=== PATIENT | female | born 1950 | race Caucasian/White ===

== ENCOUNTER 2018-07-28 17:16 | Emergency (ER) | payer MEDICARE, OTHER ==
[~2018-07-28] VITALS: Ht 167.6 cm; Wt 83.6 kg
[~2018-07-28 17:16] MED LIST: NO MEDS
[2018-07-28 17:49] LABS: BASOPHILS % (AUTO) 0.5 % (0.0-2.0); EOSINOPHILS % (AUTO) 0.6 % (1.0-6.0); HEMATOCRIT 41.4 % (36-46); HEMOGLOBIN 13.9 g/dL (12.0-16.0); LYMPHOCYTES # (AUTO) 1.1 K/uL (1.0-4.8); LYMPHOCYTES % (AUTO) 25.5 % (22.0-44.0); MEAN CORPUSCULAR HEMOGLOBIN 32.2 pg (26.0-34.0); MEAN CORPUSCULAR HGB CONC 33.6 G/dL (31.0-37.0); MEAN CORPUSCULAR VOLUME 96 fL (80-100); MONOCYTES # (AUTO) 0.4 K/uL (0.1-1.0); NEUTROPHILS # (AUTO) 2.6 K/uL (1.8-7.7); NEUTROPHILS % (AUTO) 63.4 % (40.0-70.0); PLATELET COUNT (AUTO) 159 K/uL (150-450); RED BLOOD CELL COUNT(AUTO) 4.33 MIL/uL (4.00-5.20)
[2018-07-28 18:01] LABS: PROTHROMBIN TIME 10.7 SEC (9.4-11.6)
[2018-07-28] MEDS ORDERED: GABA-531 PO (18:26)
[2018-07-28] MEDS ORDERED: FLUT16H NASAL (18:26)
[2018-07-28] MEDS ORDERED: ADV250 IH (18:26)
[2018-07-28] MEDS ORDERED: SIMV-260 PO (18:26)
[2018-07-28 18:35] LABS: B-TYPE NATRIURETIC PEPTIDE < 5 pg/mL (0-100)
[2018-07-28 18:41] LABS: ANION GAP 8 mmol/L (8-16); CALCIUM, TOTAL 8.4 mg/dL (8.8-10.5); CARBON DIOXIDE 27 mmol/L (22-29); CHLORIDE 103 mmol/L (98-107); CREATININE 0.69 mg/dL (0.60-1.30); GLOMERULAR FILTR. RATE CALC > 60 mL/min (>60); GLUCOSE,RANDOM 98 mg/dL (70-110); POTASSIUM 4.2 mmol/L (3.5-5.1); SODIUM SERUM 138 mmol/L (136-145); UREA NITROGEN, BLOOD 8 mg/dL (7-18)
[2018-07-28 18:46] LABS: ALANINE AMINOTRANSFERASE 38 U/L (12-78); ALBUMIN 3.5 g/dL (3.4-5.0); ALKALINE PHOSPHATASE 70 U/L (46-116); ASPARTATE AMINOTRANSFERASE 26 U/L (15-37); BILIRUBIN,TOTAL 0.4 mg/dL (0.1-1.0); TOTAL PROTEIN, SERUM 6.8 g/dL (6.4-8.2)
[2018-07-28] MEDS ORDERED: IOVERSOL 320 MG/ML 100 ML VIAL ONE (20:40)
[2018-07-28] MEDS ORDERED: SODIUM CHLORIDE 0.9% 100 ML ONE (20:40)
[2018-07-28] MEDS ORDERED: ALBUTEROL SULFATE 2.5 MG/0.5 ML NEB SOLUTION NEB ONE (20:45)
[2018-07-28] MEDS ORDERED: IPRATROPIUM BROMIDE 0.5 MG/2.5 ML NEB SOLUTION NEB ONE (20:45)
[2018-07-28] MEDS ORDERED: LEVOFLOXACIN 250 MG TABLET PO ONE (22:45)
[2018-07-28] MEDS ORDERED: ACETAMINOPHEN 500 MG TABLET PO ONE (23:00)
[2018-07-28 23:23] VITALS: BP 131/79
== END 2018-07-28 23:47 | disposition home or self-care (01) ==
LOC: EMS 17:16
DX: J18.0 Bronchopneumonia, unspecified organism (principal); J44.9 Chronic obstructive pulmonary disease, unspecified; Z88.8 Allergy status to other drugs, medicaments and biological substances; Z79.899 Other long term (current) drug therapy
CPT/HCPCS: 36415; 71046; 71275; 80053; 83880; 84484; 85025; 85610; 85730; 87040; 93005; 94640; 99285; J7050; Q9967

== ENCOUNTER 2018-07-29 07:33 | Inpatient (IN) | payer MEDICARE, OTHER ==
[~2018-07-29] VITALS: Ht 160 cm; Wt 64.2 kg
[~2018-07-29 07:33] MED LIST changes: +ADV250 IH; +FLUT16H NASAL; +GABA-531 PO; +SIMV-260 PO
[2018-07-29] MEDS ORDERED: CefTRIAXone 1 GM/DEXTROSE 50 ML IV ONE (08:00)
[2018-07-29] MEDS ORDERED: AZITHROMYCIN 500 MG/NS 250 ML IV ONE (08:00)
[2018-07-29] MEDS ORDERED: ONDANSETRON HCL 4 MG/2 ML VIAL IVP PRN ×2 (08:15→10:15)
[2018-07-29] MEDS ORDERED: ACETAMINOPHEN 325 MG TABLET PO PRN (08:15)
[2018-07-29 08:39] LABS: BASOPHILS % (AUTO) 0.6 % (0.0-2.0); EOSINOPHILS % (AUTO) 0.6 % (1.0-6.0); HEMATOCRIT 41.7 % (36-46); HEMOGLOBIN 14.2 g/dL (12.0-16.0); LYMPHOCYTES # (AUTO) 0.9 K/uL (1.0-4.8); LYMPHOCYTES % (AUTO) 30.2 % (22.0-44.0); MEAN CORPUSCULAR HEMOGLOBIN 32.3 pg (26.0-34.0); MEAN CORPUSCULAR HGB CONC 34.1 G/dL (31.0-37.0); MEAN CORPUSCULAR VOLUME 95 fL (80-100); MONOCYTES # (AUTO) 0.3 K/uL (0.1-1.0); MONOCYTES % (AUTO) 10.7 % (2.0-9.0); NEUTROPHILS # (AUTO) 1.8 K/uL (1.8-7.7); NEUTROPHILS % (AUTO) 57.9 % (40.0-70.0); PLATELET COUNT (AUTO) 156 K/uL (150-450); RED BLOOD CELL COUNT(AUTO) 4.39 MIL/uL (4.00-5.20); RED CELL DISTRIBUTION WIDTH 13.8 % (11.5-14.5)
[2018-07-29 08:47] LABS: ANION GAP 4 mmol/L (8-16); CALCIUM, TOTAL 8.6 mg/dL (8.8-10.5); CARBON DIOXIDE 32 mmol/L (22-29); CHLORIDE 102 mmol/L (98-107); CREATININE 0.76 mg/dL (0.60-1.30); GLOMERULAR FILTR. RATE CALC > 60 mL/min (>60); GLUCOSE,RANDOM 96 mg/dL (70-110); POTASSIUM 3.8 mmol/L (3.5-5.1); SODIUM SERUM 138 mmol/L (136-145); UREA NITROGEN, BLOOD 8 mg/dL (7-18)
[2018-07-29 09:53] VITALS: BP 124/58
[2018-07-29] MEDS ORDERED: MAGNESIUM HYDROXIDE SUSPENSION 30 ML UDCUP PO PRN (10:15)
[2018-07-29] MEDS ORDERED: MORPHINE SULFATE 2 MG/ML SYRINGE IVP PRN (10:15)
[2018-07-29] MEDS ORDERED: ZOLPIDEM TARTRATE 5 MG TABLET PO PRN (10:15)
[2018-07-29] MEDS ORDERED: BISACODYL 10 MG RECTAL RECTAL SUPPOSITORY PR PRN (10:15)
[2018-07-29] MEDS ORDERED: *CLINICAL-LEVOFLOXACIN IVPB DOSING CLINICAL ONE (10:15)
[2018-07-29] MEDS ORDERED: LEVOFLOXACIN 750 MG/D5% WATER 150 ML IV SCH (11:00)
[2018-07-29] MEDS: DOXYCYCLINE HYCLATE 100 MG CAPSULE PO SCH ×2 (12:18→20:42)
[2018-07-29] MEDS: FLUTICASONE/VILANTEROL 200-25 MCG/INH INHALER [14] IH SCH (12:18)
[2018-07-29] MEDS ORDERED: SODIUM CHLORIDE 0.9% 500 ML IV ONE (12:22)
[2018-07-29 12:33] VITALS: BP 123/61
[2018-07-29 15:20] VITALS: BP 107/62
[2018-07-29] MEDS: GABAPENTIN 300 MG CAPSULE PO SCH ×2 (17:58→20:42)
[2018-07-29] MEDS: HEPARIN SODIUM,PORCINE 5,000 UNITS/ML VIAL SQ SCH (17:58)
[2018-07-29 19:31] VITALS: BP 120/65
[2018-07-29] MEDS: DOCUSATE SODIUM 100 MG CAPSULE PO SCH (20:42)
[2018-07-30] VITALS (7 sets, daily range): BP systolic 108–133; BP diastolic 50–75
[2018-07-30] MEDS: HEPARIN SODIUM,PORCINE 5,000 UNITS/ML VIAL SQ SCH ×3 (00:13→16:00)
[2018-07-30] MEDS: FLUTICASONE PROPIONATE 50 MCG/SPRAY 16 GM NASAL SPRAY NASAL SCH (08:22)
[2018-07-30] MEDS: FLUTICASONE/VILANTEROL 200-25 MCG/INH INHALER [14] IH SCH (08:22)
[2018-07-30] MEDS: DOXYCYCLINE HYCLATE 100 MG CAPSULE PO SCH ×2 (08:22→20:40)
[2018-07-30] MEDS: PANTOPRAZOLE SODIUM 40 MG DR TABLET PO SCH (08:23)
[2018-07-30] MEDS: GABAPENTIN 300 MG CAPSULE PO SCH ×3 (08:23→20:40)
[2018-07-30] MEDS: DOCUSATE SODIUM 100 MG CAPSULE PO SCH ×2 (08:23→20:40)
[2018-07-30] MEDS: CefTRIAXone 1 GM/DEXTROSE 50 ML IV SCH (08:25)
[2018-07-30] MEDS ORDERED: SODIUM CHLORIDE 0.9% 500 ML IV ONE (17:09)
[2018-07-30] MEDS: ACETAMINOPHEN 325 MG TABLET PO PRN (20:39)
[2018-07-31] MEDS: HEPARIN SODIUM,PORCINE 5,000 UNITS/ML VIAL SQ SCH ×3 (00:51→16:42)
[2018-07-31 04:48] VITALS: BP 113/63
[2018-07-31 07:20] VITALS: BP 113/77
[2018-07-31] MEDS: CefTRIAXone 1 GM/DEXTROSE 50 ML IV SCH (08:37)
[2018-07-31] MEDS: DOCUSATE SODIUM 100 MG CAPSULE PO SCH ×2 (08:37→20:28)
[2018-07-31] MEDS: FLUTICASONE PROPIONATE 50 MCG/SPRAY 16 GM NASAL SPRAY NASAL SCH (08:37)
[2018-07-31] MEDS: FLUTICASONE/VILANTEROL 200-25 MCG/INH INHALER [14] IH SCH (08:37)
[2018-07-31] MEDS: DOXYCYCLINE HYCLATE 100 MG CAPSULE PO SCH ×2 (08:38→20:28)
[2018-07-31] MEDS: GABAPENTIN 300 MG CAPSULE PO SCH ×3 (08:38→20:28)
[2018-07-31] MEDS: PANTOPRAZOLE SODIUM 40 MG DR TABLET PO SCH (08:38)
[2018-07-31 11:10] VITALS: BP 121/44
[2018-07-31 16:29] VITALS: BP 117/75
[2018-07-31 20:31] VITALS: BP 123/69
[2018-07-31 23:16] VITALS: BP 117/58
[2018-08-01] MEDS: HEPARIN SODIUM,PORCINE 5,000 UNITS/ML VIAL SQ SCH ×3 (01:04→15:15)
[2018-08-01 03:46] VITALS: BP 109/64
[2018-08-01] MEDS: ACETAMINOPHEN 325 MG TABLET PO PRN (04:04)
[2018-08-01 07:36] VITALS: BP 113/60
[2018-08-01] MEDS: DOCUSATE SODIUM 100 MG CAPSULE PO SCH ×2 (08:16→20:46)
[2018-08-01] MEDS: FLUTICASONE/VILANTEROL 200-25 MCG/INH INHALER [14] IH SCH (08:16)
[2018-08-01] MEDS: GABAPENTIN 300 MG CAPSULE PO SCH ×3 (08:16→20:46)
[2018-08-01] MEDS: DOXYCYCLINE HYCLATE 100 MG CAPSULE PO SCH ×2 (08:16→20:46)
[2018-08-01] MEDS: FLUTICASONE PROPIONATE 50 MCG/SPRAY 16 GM NASAL SPRAY NASAL SCH (08:16)
[2018-08-01] MEDS: PANTOPRAZOLE SODIUM 40 MG DR TABLET PO SCH (08:16)
[2018-08-01] MEDS: CefTRIAXone 1 GM/DEXTROSE 50 ML IV SCH (08:26)
[2018-08-01 11:41] VITALS: BP 93/53
[2018-08-01 15:34] VITALS: BP 115/64
[2018-08-01 20:05] VITALS: BP 127/70
[2018-08-02 00:08] VITALS: BP 115/71
[2018-08-02] MEDS: HEPARIN SODIUM,PORCINE 5,000 UNITS/ML VIAL SQ SCH ×4 (00:57→23:27)
[2018-08-02 04:56] VITALS: BP 119/66
[2018-08-02 07:41] VITALS: BP 117/67
[2018-08-02] MEDS: FLUTICASONE/VILANTEROL 200-25 MCG/INH INHALER [14] IH SCH (07:56)
[2018-08-02] MEDS: FLUTICASONE PROPIONATE 50 MCG/SPRAY 16 GM NASAL SPRAY NASAL SCH (07:56)
[2018-08-02] MEDS: PANTOPRAZOLE SODIUM 40 MG DR TABLET PO SCH (07:56)
[2018-08-02] MEDS: DOCUSATE SODIUM 100 MG CAPSULE PO SCH ×2 (07:56→20:24)
[2018-08-02] MEDS: CefTRIAXone 1 GM/DEXTROSE 50 ML IV SCH (07:56)
[2018-08-02] MEDS: GABAPENTIN 300 MG CAPSULE PO SCH ×3 (07:57→20:24)
[2018-08-02] MEDS: DOXYCYCLINE HYCLATE 100 MG CAPSULE PO SCH ×2 (07:57→20:24)
[2018-08-02 09:23] LABS: LEGIONELLA PNEUMO AG URINE Negative (Negative); ORGANISM ID Not indicated.; S PNEUMO SOURCE Urine; STREP PNEUMONIAE AG URINE Negative (Negative); STREP.PNEUMO BODY FLUID CULT. Not Indicated
[2018-08-02 11:33] VITALS: BP 106/62
[2018-08-02 15:27] VITALS: BP 130/74
[2018-08-02 20:05] VITALS: BP 104/68
[2018-08-02 22:15] LABS: QUANTIFERON+, Nil Value 0.11 IU/mL; QUANTIFERON+,Mitogen Value >10.00 IU/mL; QUANTIFERON+,TB1 Antigen Value 0.74 IU/mL; QUANTIFERON+,TB2 Antigen Value 1.37 IU/mL; QUANTIFERON, TB GOLD PLUS Positive (Negative)
[2018-08-03] VITALS (7 sets, daily range): BP systolic 100–122; BP diastolic 55–74
[2018-08-03] MEDS: HEPARIN SODIUM,PORCINE 5,000 UNITS/ML VIAL SQ SCH ×2 (08:47→16:57)
[2018-08-03] MEDS: DOCUSATE SODIUM 100 MG CAPSULE PO SCH ×2 (08:47→20:18)
[2018-08-03] MEDS: PANTOPRAZOLE SODIUM 40 MG DR TABLET PO SCH (08:47)
[2018-08-03] MEDS: GABAPENTIN 300 MG CAPSULE PO SCH ×3 (08:48→20:18)
[2018-08-03] MEDS: FLUTICASONE PROPIONATE 50 MCG/SPRAY 16 GM NASAL SPRAY NASAL SCH (08:48)
[2018-08-03] MEDS: FLUTICASONE/VILANTEROL 200-25 MCG/INH INHALER [14] IH SCH (08:48)
[2018-08-03] MEDS: DOXYCYCLINE HYCLATE 100 MG CAPSULE PO SCH ×2 (08:49→20:18)
[2018-08-03] MEDS: CefTRIAXone 1 GM/DEXTROSE 50 ML IV SCH (08:52)
[2018-08-03] MEDS ORDERED: SODIUM CHLORIDE 0.9% 250 ML IV ONE (09:07)
[2018-08-04] MEDS: HEPARIN SODIUM,PORCINE 5,000 UNITS/ML VIAL SQ SCH ×3 (00:10→16:13)
[2018-08-04 04:45] VITALS: BP 108/42
[2018-08-04 07:06] LABS: MTB NUCL.ACID AMPLIF W/O AFBCS Negative (Negative)
[2018-08-04 08:08] VITALS: BP 126/74
[2018-08-04] MEDS: FLUTICASONE/VILANTEROL 200-25 MCG/INH INHALER [14] IH SCH (08:51)
[2018-08-04] MEDS: FLUTICASONE PROPIONATE 50 MCG/SPRAY 16 GM NASAL SPRAY NASAL SCH (08:51)
[2018-08-04] MEDS: GABAPENTIN 300 MG CAPSULE PO SCH ×3 (08:52→20:38)
[2018-08-04] MEDS: DOXYCYCLINE HYCLATE 100 MG CAPSULE PO SCH ×2 (08:52→20:38)
[2018-08-04] MEDS: DOCUSATE SODIUM 100 MG CAPSULE PO SCH ×2 (08:52→20:38)
[2018-08-04] MEDS: PANTOPRAZOLE SODIUM 40 MG DR TABLET PO SCH (08:52)
[2018-08-04] MEDS ORDERED: SODIUM CHLORIDE 0.9% 250 ML IV ONE (09:52)
[2018-08-04] MEDS: CefTRIAXone 1 GM/DEXTROSE 50 ML IV SCH (10:02)
[2018-08-04 12:03] VITALS: BP 124/81
[2018-08-04 16:08] VITALS: BP 118/72
[2018-08-04] MEDS ORDERED: SODIUM CHLORIDE 3% 15 ML NEB SOLUTION NEB ONE (19:57)
[2018-08-04 20:38] VITALS: BP 125/85
[2018-08-05] MEDS: HEPARIN SODIUM,PORCINE 5,000 UNITS/ML VIAL SQ SCH ×3 (00:30→16:06)
[2018-08-05 00:33] VITALS: BP 103/55
[2018-08-05 05:08] VITALS: BP 105/70
[2018-08-05 07:50] VITALS: BP 119/66
[2018-08-05] MEDS: DOCUSATE SODIUM 100 MG CAPSULE PO SCH ×2 (09:00→21:04)
[2018-08-05] MEDS: CefTRIAXone 1 GM/DEXTROSE 50 ML IV SCH (09:29)
[2018-08-05] MEDS: PANTOPRAZOLE SODIUM 40 MG DR TABLET PO SCH (09:29)
[2018-08-05] MEDS: GABAPENTIN 300 MG CAPSULE PO SCH ×3 (09:29→21:04)
[2018-08-05] MEDS: FLUTICASONE PROPIONATE 50 MCG/SPRAY 16 GM NASAL SPRAY NASAL SCH (09:30)
[2018-08-05] MEDS: DOXYCYCLINE HYCLATE 100 MG CAPSULE PO SCH ×2 (09:30→21:04)
[2018-08-05] MEDS: FLUTICASONE/VILANTEROL 200-25 MCG/INH INHALER [14] IH SCH (09:30)
[2018-08-05 12:10] VITALS: BP 121/64
[2018-08-05 17:50] VITALS: BP 119/67
[2018-08-05 20:46] VITALS: BP 117/71
[2018-08-06] VITALS (7 sets, daily range): BP systolic 109–140; BP diastolic 62–83
[2018-08-06] MEDS: HEPARIN SODIUM,PORCINE 5,000 UNITS/ML VIAL SQ SCH ×4 (00:27→23:40)
[2018-08-06 07:06] LABS: HIV 1-2 SCREEN 4TH GEN W/RFLX Non Reactive (Non Reactive)
[2018-08-06] MEDS: CefTRIAXone 1 GM/DEXTROSE 50 ML IV SCH (08:38)
[2018-08-06] MEDS: GABAPENTIN 300 MG CAPSULE PO SCH ×3 (08:40→20:12)
[2018-08-06] MEDS: FLUTICASONE/VILANTEROL 200-25 MCG/INH INHALER [14] IH SCH (08:40)
[2018-08-06] MEDS: DOXYCYCLINE HYCLATE 100 MG CAPSULE PO SCH ×2 (08:40→20:12)
[2018-08-06] MEDS: PANTOPRAZOLE SODIUM 40 MG DR TABLET PO SCH (08:40)
[2018-08-06] MEDS: DOCUSATE SODIUM 100 MG CAPSULE PO SCH ×3 (08:40→20:13)
[2018-08-06] MEDS: FLUTICASONE PROPIONATE 50 MCG/SPRAY 16 GM NASAL SPRAY NASAL SCH (08:40)
[2018-08-07 04:50] VITALS: BP 98/61
[2018-08-07] MEDS: HEPARIN SODIUM,PORCINE 5,000 UNITS/ML VIAL SQ SCH ×2 (08:00→16:00)
[2018-08-07 08:07] VITALS: BP 123/90
[2018-08-07] MEDS: CefTRIAXone 1 GM/DEXTROSE 50 ML IV SCH (08:17)
[2018-08-07] MEDS: DOXYCYCLINE HYCLATE 100 MG CAPSULE PO SCH ×2 (08:18→20:31)
[2018-08-07] MEDS: GABAPENTIN 300 MG CAPSULE PO SCH ×3 (08:18→20:31)
[2018-08-07] MEDS: FLUTICASONE/VILANTEROL 200-25 MCG/INH INHALER [14] IH SCH (08:18)
[2018-08-07] MEDS: PANTOPRAZOLE SODIUM 40 MG DR TABLET PO SCH (08:18)
[2018-08-07] MEDS: DOCUSATE SODIUM 100 MG CAPSULE PO SCH ×2 (08:18→20:31)
[2018-08-07] MEDS: FLUTICASONE PROPIONATE 50 MCG/SPRAY 16 GM NASAL SPRAY NASAL SCH (08:18)
[2018-08-07 11:05] VITALS: BP 109/50
[2018-08-07 16:32] VITALS: BP 128/61
[2018-08-07 20:10] VITALS: BP 101/65
[2018-08-07 23:39] VITALS: BP 100/61
[2018-08-08 04:43] VITALS: BP 102/69
[2018-08-08] MEDS: FLUTICASONE PROPIONATE 50 MCG/SPRAY 16 GM NASAL SPRAY NASAL SCH (07:48)
[2018-08-08] MEDS: FLUTICASONE/VILANTEROL 200-25 MCG/INH INHALER [14] IH SCH (07:48)
[2018-08-08] MEDS: CefTRIAXone 1 GM/DEXTROSE 50 ML IV SCH (07:48)
[2018-08-08] MEDS: HEPARIN SODIUM,PORCINE 5,000 UNITS/ML VIAL SQ SCH ×5 (07:48→23:06)
[2018-08-08] MEDS: DOXYCYCLINE HYCLATE 100 MG CAPSULE PO SCH (07:48)
[2018-08-08] MEDS: PANTOPRAZOLE SODIUM 40 MG DR TABLET PO SCH (07:48)
[2018-08-08] MEDS: DOCUSATE SODIUM 100 MG CAPSULE PO SCH ×2 (07:48→20:06)
[2018-08-08] MEDS: GABAPENTIN 300 MG CAPSULE PO SCH ×3 (07:50→20:06)
[2018-08-08 08:05] VITALS: BP 121/75
[2018-08-08 11:20] VITALS: BP 103/68
[2018-08-08 15:53] VITALS: BP 124/65
[2018-08-08 20:34] VITALS: BP 122/70
[2018-08-08 23:59] VITALS: BP 118/70
[2018-08-09 05:39] VITALS: BP 115/67
[2018-08-09] MEDS: GABAPENTIN 300 MG CAPSULE PO SCH ×3 (07:51→20:49)
[2018-08-09] MEDS: DOCUSATE SODIUM 100 MG CAPSULE PO SCH ×2 (07:51→20:49)
[2018-08-09] MEDS: FLUTICASONE/VILANTEROL 200-25 MCG/INH INHALER [14] IH SCH (07:51)
[2018-08-09] MEDS: PANTOPRAZOLE SODIUM 40 MG DR TABLET PO SCH (07:51)
[2018-08-09] MEDS: FLUTICASONE PROPIONATE 50 MCG/SPRAY 16 GM NASAL SPRAY NASAL SCH (07:51)
[2018-08-09] MEDS: HEPARIN SODIUM,PORCINE 5,000 UNITS/ML VIAL SQ SCH ×3 (08:00→23:31)
[2018-08-09 08:07] VITALS: BP 112/67
[2018-08-09 12:09] VITALS: BP 107/65
[2018-08-09 16:07] VITALS: BP 115/70
[2018-08-09 20:09] VITALS: BP 110/63
[2018-08-10 04:51] VITALS: BP 106/51
[2018-08-10] MEDS: ACETAMINOPHEN 325 MG TABLET PO PRN ×2 (05:07→22:28)
[2018-08-10] MEDS: HEPARIN SODIUM,PORCINE 5,000 UNITS/ML VIAL SQ SCH ×2 (08:00→15:29)
[2018-08-10] MEDS: FLUTICASONE/VILANTEROL 200-25 MCG/INH INHALER [14] IH SCH (08:39)
[2018-08-10] MEDS: FLUTICASONE PROPIONATE 50 MCG/SPRAY 16 GM NASAL SPRAY NASAL SCH (08:39)
[2018-08-10] MEDS: PANTOPRAZOLE SODIUM 40 MG DR TABLET PO SCH (08:39)
[2018-08-10] MEDS: GABAPENTIN 300 MG CAPSULE PO SCH ×3 (08:39→22:28)
[2018-08-10] MEDS: DOCUSATE SODIUM 100 MG CAPSULE PO SCH ×2 (08:40→22:28)
[2018-08-10 08:58] VITALS: BP 122/61
[2018-08-10 12:05] LABS: BASOPHILS % (AUTO) 0.4 % (0.0-2.0); HEMATOCRIT 40.3 % (36-46); HEMOGLOBIN 13.7 g/dL (12.0-16.0); LYMPHOCYTES # (AUTO) 1.5 K/uL (1.0-4.8); LYMPHOCYTES % (AUTO) 29.3 % (22.0-44.0); MEAN CORPUSCULAR HEMOGLOBIN 33.1 pg (26.0-34.0); MEAN CORPUSCULAR HGB CONC 33.9 G/dL (31.0-37.0); MEAN CORPUSCULAR VOLUME 98 fL (80-100); MONOCYTES # (AUTO) 0.4 K/uL (0.1-1.0); MONOCYTES % (AUTO) 6.9 % (2.0-9.0); NEUTROPHILS # (AUTO) 3.1 K/uL (1.8-7.7); NEUTROPHILS % (AUTO) 61.4 % (40.0-70.0); PLATELET COUNT (AUTO) 269 K/uL (150-450); RED BLOOD CELL COUNT(AUTO) 4.12 MIL/uL (4.00-5.20); RED CELL DISTRIBUTION WIDTH 14.3 % (11.5-14.5)
[2018-08-10 12:48] LABS: ALANINE AMINOTRANSFERASE 66 U/L (12-78); ALBUMIN 3.5 g/dL (3.4-5.0); ALKALINE PHOSPHATASE 76 U/L (46-116); ANION GAP 6 mmol/L (8-16); ASPARTATE AMINOTRANSFERASE 18 U/L (15-37); BILIRUBIN,TOTAL 0.3 mg/dL (0.1-1.0); CALCIUM, TOTAL 8.8 mg/dL (8.8-10.5); CARBON DIOXIDE 29 mmol/L (22-29); CHLORIDE 104 mmol/L (98-107); CREATININE 0.64 mg/dL (0.60-1.30); GLOMERULAR FILTR. RATE CALC > 60 mL/min (>60); GLUCOSE,RANDOM 102 mg/dL (70-110); POTASSIUM 4.3 mmol/L (3.5-5.1); SODIUM SERUM 139 mmol/L (136-145); TOTAL PROTEIN, SERUM 6.5 g/dL (6.4-8.2); UREA NITROGEN, BLOOD 14 mg/dL (7-18)
[2018-08-10 13:13] VITALS: BP 117/76
[2018-08-10 16:46] VITALS: BP 145/90
[2018-08-10 20:56] VITALS: BP 130/80
[2018-08-11 00:07] VITALS: BP 129/89
[2018-08-11] MEDS: HEPARIN SODIUM,PORCINE 5,000 UNITS/ML VIAL SQ SCH ×3 (00:26→16:00)
[2018-08-11 04:00] VITALS: BP 123/70
[2018-08-11] MEDS: HYDROCODONE/ACETAMINOPHEN 5-325 MG TABLET PO PRN (06:21)
[2018-08-11 07:25] VITALS: BP 94/60
[2018-08-11] MEDS: GABAPENTIN 300 MG CAPSULE PO SCH ×3 (08:25→21:00)
[2018-08-11] MEDS: FLUTICASONE PROPIONATE 50 MCG/SPRAY 16 GM NASAL SPRAY NASAL SCH (08:25)
[2018-08-11] MEDS: FLUTICASONE/VILANTEROL 200-25 MCG/INH INHALER [14] IH SCH (08:25)
[2018-08-11] MEDS: PANTOPRAZOLE SODIUM 40 MG DR TABLET PO SCH (08:25)
[2018-08-11] MEDS: DOCUSATE SODIUM 100 MG CAPSULE PO SCH ×2 (08:28→21:00)
[2018-08-11 11:32] VITALS: BP 115/57
[2018-08-11 15:31] VITALS: BP 112/55
[2018-08-11 20:05] VITALS: BP 123/61
[2018-08-12] VITALS (7 sets, daily range): BP systolic 98–120; BP diastolic 52–78
[2018-08-12] MEDS: FLUTICASONE PROPIONATE 50 MCG/SPRAY 16 GM NASAL SPRAY NASAL SCH (09:47)
[2018-08-12] MEDS: HEPARIN SODIUM,PORCINE 5,000 UNITS/ML VIAL SQ SCH ×4 (09:47→23:37)
[2018-08-12] MEDS: DOCUSATE SODIUM 100 MG CAPSULE PO SCH ×3 (09:47→20:13)
[2018-08-12] MEDS: FLUTICASONE/VILANTEROL 200-25 MCG/INH INHALER [14] IH SCH (09:47)
[2018-08-12] MEDS: GABAPENTIN 300 MG CAPSULE PO SCH ×3 (09:48→20:12)
[2018-08-12] MEDS: PANTOPRAZOLE SODIUM 40 MG DR TABLET PO SCH (09:48)
[2018-08-12] MEDS ORDERED: AZITHROMYCIN 250 MG TABLET PO ONE (15:15)
[2018-08-12] MEDS: ISONIAZID 300 MG TABLET PO SCH (16:39)
[2018-08-12] MEDS: RIFAMPIN 300 MG CAPSULE PO SCH (16:47)
[2018-08-12] MEDS: PYRAZINAMIDE 500 MG TABLET PO SCH (16:47)
[2018-08-12] MEDS: PYRIDOXINE HCL 50 MG TABLET PO SCH (16:47)
[2018-08-12] MEDS: ETHAMBUTOL HCL 400 MG TABLET PO SCH (16:48)
[2018-08-12 20:07] LABS: MTB NUCL.ACID AMPLIF W/O AFBCS Negative (Negative)
[2018-08-13 04:56] VITALS: BP 98/50
[2018-08-13 08:04] VITALS: BP 110/54
[2018-08-13] MEDS: FLUTICASONE PROPIONATE 50 MCG/SPRAY 16 GM NASAL SPRAY NASAL SCH (08:36)
[2018-08-13] MEDS: FLUTICASONE/VILANTEROL 200-25 MCG/INH INHALER [14] IH SCH (08:36)
[2018-08-13] MEDS: PYRIDOXINE HCL 50 MG TABLET PO SCH (08:37)
[2018-08-13] MEDS: ISONIAZID 300 MG TABLET PO SCH (08:37)
[2018-08-13] MEDS: RIFAMPIN 300 MG CAPSULE PO SCH (08:37)
[2018-08-13] MEDS: PANTOPRAZOLE SODIUM 40 MG DR TABLET PO SCH (08:37)
[2018-08-13] MEDS: ETHAMBUTOL HCL 400 MG TABLET PO SCH (08:37)
[2018-08-13] MEDS: GABAPENTIN 300 MG CAPSULE PO SCH ×3 (08:37→19:47)
[2018-08-13] MEDS: DOCUSATE SODIUM 100 MG CAPSULE PO SCH ×2 (08:37→19:48)
[2018-08-13] MEDS: PYRAZINAMIDE 500 MG TABLET PO SCH (08:38)
[2018-08-13] MEDS: HEPARIN SODIUM,PORCINE 5,000 UNITS/ML VIAL SQ SCH ×3 (08:38→23:58)
[2018-08-13 12:18] VITALS: BP 105/54
[2018-08-13 16:07] VITALS: BP 120/68
[2018-08-13 19:52] VITALS: BP 130/68
[2018-08-14 00:13] VITALS: BP 122/69
[2018-08-14 04:40] VITALS: BP 118/53
[2018-08-14 08:04] VITALS: BP 127/72
[2018-08-14] MEDS: ETHAMBUTOL HCL 400 MG TABLET PO SCH (08:10)
[2018-08-14] MEDS: HEPARIN SODIUM,PORCINE 5,000 UNITS/ML VIAL SQ SCH ×3 (08:10→23:55)
[2018-08-14] MEDS: PANTOPRAZOLE SODIUM 40 MG DR TABLET PO SCH (08:10)
[2018-08-14] MEDS: PYRIDOXINE HCL 50 MG TABLET PO SCH (08:10)
[2018-08-14] MEDS: FLUTICASONE/VILANTEROL 200-25 MCG/INH INHALER [14] IH SCH (08:10)
[2018-08-14] MEDS: DOCUSATE SODIUM 100 MG CAPSULE PO SCH ×2 (08:10→21:28)
[2018-08-14] MEDS: RIFAMPIN 300 MG CAPSULE PO SCH (08:10)
[2018-08-14] MEDS: ISONIAZID 300 MG TABLET PO SCH (08:10)
[2018-08-14] MEDS: GABAPENTIN 300 MG CAPSULE PO SCH ×3 (08:10→21:28)
[2018-08-14] MEDS: PYRAZINAMIDE 500 MG TABLET PO SCH (08:10)
[2018-08-14] MEDS: FLUTICASONE PROPIONATE 50 MCG/SPRAY 16 GM NASAL SPRAY NASAL SCH (08:11)
[2018-08-14] MEDS: HYDROCODONE/ACETAMINOPHEN 5-325 MG TABLET PO PRN (08:12)
[2018-08-14 11:34] VITALS: BP 124/76
[2018-08-14] MEDS: ACETAMINOPHEN 325 MG TABLET PO PRN (15:49)
[2018-08-14 16:38] VITALS: BP 125/83
[2018-08-14 20:14] VITALS: BP 118/76
[2018-08-15] VITALS (7 sets, daily range): BP systolic 98–136; BP diastolic 57–75
[2018-08-15] MEDS: PYRAZINAMIDE 500 MG TABLET PO SCH (08:28)
[2018-08-15] MEDS: ETHAMBUTOL HCL 400 MG TABLET PO SCH (08:28)
[2018-08-15] MEDS: ACETAMINOPHEN 325 MG TABLET PO PRN (08:29)
[2018-08-15] MEDS: AZITHROMYCIN 250 MG TABLET PO SCH (08:29)
[2018-08-15] MEDS: PYRIDOXINE HCL 50 MG TABLET PO SCH (08:29)
[2018-08-15] MEDS: GABAPENTIN 300 MG CAPSULE PO SCH ×2 (08:29→16:04)
[2018-08-15] MEDS: FLUTICASONE PROPIONATE 50 MCG/SPRAY 16 GM NASAL SPRAY NASAL SCH (08:29)
[2018-08-15] MEDS: FLUTICASONE/VILANTEROL 200-25 MCG/INH INHALER [14] IH SCH (08:29)
[2018-08-15] MEDS: HEPARIN SODIUM,PORCINE 5,000 UNITS/ML VIAL SQ SCH ×2 (08:29→16:00)
[2018-08-15] MEDS: RIFAMPIN 300 MG CAPSULE PO SCH (08:29)
[2018-08-15] MEDS: PANTOPRAZOLE SODIUM 40 MG DR TABLET PO SCH (08:29)
[2018-08-15] MEDS: ISONIAZID 300 MG TABLET PO SCH (08:29)
[2018-08-15] MEDS: DOCUSATE SODIUM 100 MG CAPSULE PO SCH (08:34)
[2018-08-16 04:51] VITALS: BP 107/59
[2018-08-16 07:44] VITALS: BP 116/64
[2018-08-16] MEDS: PYRAZINAMIDE 500 MG TABLET PO SCH (08:25)
[2018-08-16] MEDS: PYRIDOXINE HCL 50 MG TABLET PO SCH (08:25)
[2018-08-16] MEDS: PANTOPRAZOLE SODIUM 40 MG DR TABLET PO SCH (08:25)
[2018-08-16] MEDS: RIFAMPIN 300 MG CAPSULE PO SCH (08:25)
[2018-08-16] MEDS: ETHAMBUTOL HCL 400 MG TABLET PO SCH (08:25)
[2018-08-16] MEDS: GABAPENTIN 300 MG CAPSULE PO SCH ×3 (08:25→20:13)
[2018-08-16] MEDS: DOCUSATE SODIUM 100 MG CAPSULE PO SCH ×2 (08:25→20:14)
[2018-08-16] MEDS: ISONIAZID 300 MG TABLET PO SCH (08:25)
[2018-08-16] MEDS: FLUTICASONE PROPIONATE 50 MCG/SPRAY 16 GM NASAL SPRAY NASAL SCH (08:26)
[2018-08-16] MEDS: HEPARIN SODIUM,PORCINE 5,000 UNITS/ML VIAL SQ SCH ×3 (08:26→23:23)
[2018-08-16] MEDS: FLUTICASONE/VILANTEROL 200-25 MCG/INH INHALER [14] IH SCH (08:26)
[2018-08-16 11:33] VITALS: BP 111/56
[2018-08-16] MEDS ORDERED: ETHAMBUTOL HCL 400 MG TABLET PO ONE (11:45)
[2018-08-16] MEDS ORDERED: PYRAZINAMIDE 500 MG TABLET PO ONE (11:45)
[2018-08-16 16:04] VITALS: BP 126/56
[2018-08-16 20:22] VITALS: BP 108/51
[2018-08-16 23:43] VITALS: BP 105/56
[2018-08-17 04:15] VITALS: BP 124/67
[2018-08-17 06:07] LABS: BASOPHILS % (AUTO) 0.7 % (0.0-2.0); HEMATOCRIT 37.3 % (36-46); HEMOGLOBIN 12.7 g/dL (12.0-16.0); LYMPHOCYTES # (AUTO) 1.6 K/uL (1.0-4.8); LYMPHOCYTES % (AUTO) 34.7 % (22.0-44.0); MEAN CORPUSCULAR HEMOGLOBIN 33.1 pg (26.0-34.0); MEAN CORPUSCULAR VOLUME 97 fL (80-100); MONOCYTES # (AUTO) 0.3 K/uL (0.1-1.0); MONOCYTES % (AUTO) 6.8 % (2.0-9.0); NEUTROPHILS # (AUTO) 2.5 K/uL (1.8-7.7); NEUTROPHILS % (AUTO) 53.8 % (40.0-70.0); PLATELET COUNT (AUTO) 204 K/uL (150-450); RED BLOOD CELL COUNT(AUTO) 3.84 MIL/uL (4.00-5.20); RED CELL DISTRIBUTION WIDTH 14.3 % (11.5-14.5)
[2018-08-17 06:48] LABS: ALANINE AMINOTRANSFERASE 40 U/L (12-78); ALBUMIN 3.3 g/dL (3.4-5.0); ALKALINE PHOSPHATASE 77 U/L (46-116); ANION GAP 9 mmol/L (8-16); ASPARTATE AMINOTRANSFERASE 22 U/L (15-37); BILIRUBIN,TOTAL 0.2 mg/dL (0.1-1.0); CARBON DIOXIDE 28 mmol/L (22-29); CHLORIDE 103 mmol/L (98-107); CREATININE 0.78 mg/dL (0.60-1.30); GLOMERULAR FILTR. RATE CALC > 60 mL/min (>60); GLUCOSE,RANDOM 94 mg/dL (70-110); POTASSIUM 4.1 mmol/L (3.5-5.1); SODIUM SERUM 140 mmol/L (136-145); TOTAL PROTEIN, SERUM 6.2 g/dL (6.4-8.2); UREA NITROGEN, BLOOD 15 mg/dL (7-18)
[2018-08-17 07:35] VITALS: BP 134/82
[2018-08-17] MEDS: FLUTICASONE PROPIONATE 50 MCG/SPRAY 16 GM NASAL SPRAY NASAL SCH (08:22)
[2018-08-17] MEDS: FLUTICASONE/VILANTEROL 200-25 MCG/INH INHALER [14] IH SCH (08:22)
[2018-08-17] MEDS: HEPARIN SODIUM,PORCINE 5,000 UNITS/ML VIAL SQ SCH ×2 (08:23→17:26)
[2018-08-17] MEDS: PANTOPRAZOLE SODIUM 40 MG DR TABLET PO SCH (08:23)
[2018-08-17] MEDS: ETHAMBUTOL HCL 400 MG TABLET PO SCH (08:23)
[2018-08-17] MEDS: GABAPENTIN 300 MG CAPSULE PO SCH ×3 (08:23→20:26)
[2018-08-17] MEDS: PYRIDOXINE HCL 50 MG TABLET PO SCH (08:24)
[2018-08-17] MEDS: RIFAMPIN 300 MG CAPSULE PO SCH (08:24)
[2018-08-17] MEDS: PYRAZINAMIDE 500 MG TABLET PO SCH (08:24)
[2018-08-17] MEDS: DOCUSATE SODIUM 100 MG CAPSULE PO SCH ×2 (08:24→20:26)
[2018-08-17] MEDS: ISONIAZID 300 MG TABLET PO SCH (08:24)
[2018-08-17] MEDS: AZITHROMYCIN 250 MG TABLET PO SCH (08:24)
[2018-08-17 11:40] VITALS: BP 130/78
[2018-08-17 15:18] VITALS: BP 131/75
[2018-08-17 19:36] VITALS: BP 118/68
[2018-08-17 23:38] VITALS: BP 126/68
[2018-08-18 05:47] VITALS: BP 105/53
[2018-08-18] MEDS: HEPARIN SODIUM,PORCINE 5,000 UNITS/ML VIAL SQ SCH ×3 (08:00→16:00)
[2018-08-18] MEDS: PYRIDOXINE HCL 50 MG TABLET PO SCH (08:09)
[2018-08-18] MEDS: FLUTICASONE/VILANTEROL 200-25 MCG/INH INHALER [14] IH SCH (08:09)
[2018-08-18] MEDS: RIFAMPIN 300 MG CAPSULE PO SCH (08:09)
[2018-08-18] MEDS: ISONIAZID 300 MG TABLET PO SCH (08:09)
[2018-08-18] MEDS: FLUTICASONE PROPIONATE 50 MCG/SPRAY 16 GM NASAL SPRAY NASAL SCH (08:09)
[2018-08-18] MEDS: PYRAZINAMIDE 500 MG TABLET PO SCH (08:09)
[2018-08-18] MEDS: ETHAMBUTOL HCL 400 MG TABLET PO SCH (08:10)
[2018-08-18] MEDS: GABAPENTIN 300 MG CAPSULE PO SCH ×3 (08:10→20:34)
[2018-08-18] MEDS: PANTOPRAZOLE SODIUM 40 MG DR TABLET PO SCH (08:10)
[2018-08-18] MEDS: DOCUSATE SODIUM 100 MG CAPSULE PO SCH ×2 (08:11→20:34)
[2018-08-18 08:28] VITALS: BP 120/67
[2018-08-18 12:54] VITALS: BP 129/73
[2018-08-18 16:07] VITALS: BP 130/77
[2018-08-18 20:11] VITALS: BP 122/67
[2018-08-18 23:36] VITALS: BP 112/66
[2018-08-19] MEDS: HEPARIN SODIUM,PORCINE 5,000 UNITS/ML VIAL SQ SCH ×3 (00:26→16:12)
[2018-08-19 04:44] VITALS: BP 103/65
[2018-08-19 08:03] VITALS: BP 118/68
[2018-08-19] MEDS ORDERED: RIFAMPIN 300 MG CAPSULE PO SCH (09:00)
[2018-08-19] MEDS ORDERED: ETHAMBUTOL HCL 400 MG TABLET PO SCH (09:00)
[2018-08-19] MEDS: FLUTICASONE PROPIONATE 50 MCG/SPRAY 16 GM NASAL SPRAY NASAL SCH (09:48)
[2018-08-19] MEDS: DOCUSATE SODIUM 100 MG CAPSULE PO SCH (09:48)
[2018-08-19] MEDS: PANTOPRAZOLE SODIUM 40 MG DR TABLET PO SCH (09:49)
[2018-08-19] MEDS: AZITHROMYCIN 250 MG TABLET PO SCH (09:49)
[2018-08-19] MEDS: FLUTICASONE/VILANTEROL 200-25 MCG/INH INHALER [14] IH SCH (09:50)
[2018-08-19] MEDS: GABAPENTIN 300 MG CAPSULE PO SCH ×2 (09:52→16:12)
[2018-08-19 12:10] VITALS: BP 125/71
[2018-08-19 16:08] VITALS: BP 121/74
[2018-08-19] MEDS ORDERED: AZIT500T4 PO (16:54)
[2018-08-19] MEDS ORDERED: RIFA300C4 PO (17:09)
[2018-08-19] MEDS ORDERED: ETHA100T14 PO (17:09)
== END 2018-08-19 17:35 | disposition home or self-care (01) | DRG 190 ==
LOC: EDUNIT# 07:33 → EMS 07:35 → 6N 08:11 → 5N 07-31 17:55 → 4E 08-03 15:05
PROVIDERS: ADMIT Internal Medicine; ATTEND Internal Medicine
DX: J44.0 Chronic obstructive pulmonary disease with (acute) lower respiratory infection (principal); J18.9 Pneumonia, unspecified organism; R04.2 Hemoptysis; A31.9 Mycobacterial infection, unspecified; D72.819 Decreased white blood cell count, unspecified; E66.9 Obesity, unspecified; E78.00 Pure hypercholesterolemia, unspecified; E78.5 Hyperlipidemia, unspecified; Z85.3 Personal history of malignant neoplasm of breast; Z90.49 Acquired absence of other specified parts of digestive tract; Z86.11 Personal history of tuberculosis; Z88.8 Allergy status to other drugs, medicaments and biological substances; Z87.891 Personal history of nicotine dependence; Z68.25 Body mass index [BMI] 25.0-25.9, adult; Z20.1 Contact with and (suspected) exposure to tuberculosis
CPT/HCPCS: 71250; 84145; 86480; 86635; 86738; 87015; 87070; 87081; 87101; 87149; 87186; 87206; 87389; 87449; 87556; 87899; 94640; G0378; J0456; J0696; J1644; J1956; J7040; J7050